=== PATIENT | female | born 1980 ===

== ENCOUNTER 2024-01-15 12:40 | Emergency (ER) | payer BC, SELFPAY ==
[2024-01-15 12:43] VITALS: BP 131/86
--- NOTE | 2024-01-15 13:27 | ED.GENMED ---
History of Present Illness
<Samina Mei PA-C - Last Filed: 01/16/24 15:54>
General
Chief Complaint: Cardiac Symptoms
Source: patient and spouse
Exam Limitations: none
Time Seen by Provider: 01/15/24 13:16
Nursing documentation reviewed up to this point in time: agreed with
History of Present Illness
History of Present Illness:
Patient is a 43-year-old female with history hyperlipidemia presenting with constant chest tightness for the past 9 days. Patient denies any exertional or pleuritic component to pain. States pain has been relatively constant, although somewhat
worse after eating. Pain is located in her left chest without any radiation to back, jaw. She describes it as a 'tightness 'patient denies any associated fevers, chills, cough, shortness of breath, nausea/vomiting, lightheadedness.
Patient denies any recent viral illnesses.
Patient denies any personal or family history of cardiovascular disease.
Past History
<Samina Mei PA-C - Last Filed: 01/16/24 15:54>
Past History
ED Past Medical History: None
ED Past Surgical History: None
Social History
Tobacco: Non-smoker
Alcohol: None
Review of Systems
<Samina Mei PA-C - Last Filed: 01/16/24 15:54>
Review of Systems
Allergies reviewed?: Yes
All Other Systems: ROS reviewed and negative except as documented in HPI and ROS
Phy Exam
<Samina Mei PA-C - Last Filed: 01/16/24 15:54>
Physical Exam
Physical Exam:
Vitals: Patient's vital signs are stable. Afebrile
General: Patient is very well appearing, no acute distress. Nontoxic-appearing
Skin: Warm and dry, no rashes or lesions
Head: Normocephalic, atraumatic
Eyes: Sclera nonicteric. EOMs intact. No nystagmus.
Throat: Protecting airway
Neck: Normal ROM, no cervical spine tenderness, no meningismus. No JVD
Cardiac: Regular rate and rhythm, no murmurs. Anterior chest will not tender to palpation.
Pulm: Normal respiratory effort, no wheezes, rales, rhonchi heard on exam.
Abdomen: Abdomen soft. No abdominal tenderness.
Extremities: No evidence of cyanosis or edema. Great distal pulses
Neuro: AAOx3. CN II-XII intact. No focal neurologic deficits.
Psychiatric: Normal affect.
Scores
<Samina Mei PA-C - Last Filed: 01/16/24 15:54>
Heart Score for Chest Pain Patients
STEMI patient?: No
History: Slightly or Non-Suspicious
ECG: Normal
Age: </= 45 years
Risk Factors: 1 or 2 Risk Factors
Troponin: </= Normal Limit
Heart Score for Chest Pain Patients: 1
Heart Score Risk: 2.5% MACE over next 6 weeks
Course
<Samina Mei PA-C - Last Filed: 01/16/24 15:54>
Orders/Labs/Results
Orders:
Orders
01/15/24 12:45
EKG [Electrocardiogram (*1)] Urgent
Reason for Study: Chest Pain
01/15/24 12:46
EKG- Treatment ONCE
01/15/24 13:30
CR Chest - 2 Views Urgent
Comment:
Reason For Exam: left chest tightness
01/15/24 13:37
Complete Blood Count/With Diff Urgent
Comprehensive Metabolic Panel Urgent
NT-proBNP Urgent
Comment: PRO-BNP ADDED ON BY FLOOR 3PM 01-15-24
Troponin I Urgent
01/15/24 15:06
Add On- LAB Urgent
Tests Added?: Pro-BNP
01/15/24 15:19
COVID-19 Antigen Urgent
Source: Nasal Swab
01/15/24 16:29
Ketorolac [Toradol] 15 mg IV NOW STA
Abnormal Lab Results
01/15/24
13:37
RBC 3.97 L 10^6/uL
(4.20-5.40)
Hct 35.7 L %
(37.0-47.0)
MCH 31.5 H pg
(27.0-31.0)
MPV 10.8 H fL
(7.4-10.4)
01/15/24 13:37
01/15/24 13:37
Vital Signs
Initial and Last Documented VS:
Initial Vital Signs
Temp Pulse Resp BP Pulse Ox
98.1 F 71 18 131/86 100
01/15/24 12:43 01/15/24 12:43 01/15/24 12:43 01/15/24 12:43 01/15/24 12:43
Last Documented Vital Signs
Temp Pulse Resp BP Pulse Ox
98.1 F 57 19 125/89 99
01/15/24 12:43 01/15/24 16:45 01/15/24 16:45 01/15/24 16:00 01/15/24 16:45
Makenzielt;Mack Moeller, DO - Last Filed: 01/15/24 14:13>
Orders/Labs/Results
Orders:
Orders
01/15/24 12:45
EKG [Electrocardiogram (*1)] Urgent
Reason for Study: Chest Pain
01/15/24 12:46
EKG- Treatment ONCE
01/15/24 13:30
CR Chest - 2 Views Urgent
Comment:
Reason For Exam: left chest tightness
01/15/24 13:37
Complete Blood Count/With Diff Urgent
Comprehensive Metabolic Panel Urgent
NT-proBNP Urgent
Comment: PRO-BNP ADDED ON BY FLOOR 3PM 01-15-24
Troponin I Urgent
01/15/24 15:06
Add On- LAB Urgent
Tests Added?: Pro-BNP
01/15/24 15:19
COVID-19 Antigen Urgent
Source: Nasal Swab
01/15/24 16:29
Ketorolac [Toradol] 15 mg IV NOW STA
Abnormal Lab Results
01/15/24
13:37
RBC 3.97 L 10^6/uL
(4.20-5.40)
Hct 35.7 L %
(37.0-47.0)
MCH 31.5 H pg
(27.0-31.0)
MPV 10.8 H fL
(7.4-10.4)
01/15/24 13:37
01/15/24 13:37
Vital Signs
Initial and Last Documented VS:
Initial Vital Signs
Temp Pulse Resp BP Pulse Ox
98.1 F 71 18 131/86 100
01/15/24 12:43 01/15/24 12:43 01/15/24 12:43 01/15/24 12:43 01/15/24 12:43
Last Documented Vital Signs
Temp Pulse Resp BP Pulse Ox
98.1 F 57 19 125/89 99
01/15/24 12:43 01/15/24 16:45 01/15/24 16:45 01/15/24 16:00 01/15/24 16:45
<Samina Mei PA-C - Last Filed: 01/16/24 15:54>
MDM/Problems Addressed
Differential Diagnosis Includes:
Not limited to: Muscular strain, pericarditis, myocarditis, pneumothorax, ACS, pleurisy
MDM/Problems Addressed:
43-year-old female presents with 9 days of constant left-sided chest tightness. No exertional or pleuritic component. No associated shortness of breath, nausea/vomiting, diaphoresis. No fever, chills, recent viral illnesses. Mildly hypertensive
on arrival, otherwise vital signs are stable. Oxygenating well on room air. Physical exam as above. Patient is extremely well-appearing, in no apparent distress. Heart regular rate and rhythm. Lungs clear bilaterally. Patient is perfusing well
no clinical evidence of DVT. Great distal pulses. No focal neurologic deficits. Abdomen soft and nontender. EKG without any acute ischemic changes. Labs initiated in triage show no clinically significant abnormalities. Troponin is normal.
Given labs and then a constant and ongoing for the past 9 days�this is sufficient to rule out acute TN. A chest x-ray was obtained which radiology read as mild interstitial pulmonary edema. Patient does not have any clinical evidence of fluid
overload on exam and lungs are clear bilaterally. Did add on a proBNP which was normal. Do not suspect heart failure. COVID test was also negative. Very low suspicion for ACS given history and workup in emergency department. Heart score of 1.
Patient hemodynamically stable, remains in no distress. No indication for admission at this time, stable for discharge and a. Will discharge with chest pain follow-up. Close return precautions discussed. Patient seen with attending physician.
Chronic conditions affecting care:
Hyperlipidemia
Acute Exacerbation and/or Progression of Chronic Illness:
N/A
<Samina Mei PA-C - Last Filed: 01/16/24 15:54>
*Radiology
Radiology exam reviewed: preliminary read by ED provider and radiology read reviewed
*Pulse Oximetry
Patient hypoxic: no
*EKG
Interpreted by ED Provider?: Yes
EKG Intrepretation Date: 01/15/24
Heart Rate: 61
Rate: normal
Rhythm: sinus
[place]: normal axis
Interval: normal interval
QRS Pattern: normal QRS
Ischemia: no ischemia
*Grease Machine Worker Interpretation
Rate: normal
Interpretation: normal
Heart Rate: 60
Rhythm: sinus
*Critical Care Note
Total Time (30-74mins, 75-104mins- exclusive of procedures): Not Applicable
ED Attending Note
<Samina Mei PA-C - Last Filed: 01/16/24 15:54>
-
Portions of this chart may have been created with voice recognition software.� Occasional wrong word or��sound alike� substitutions may have occurred due to the inherent limitations of voice recognition software.
<Mack Moeller DO - Last Filed: 01/15/24 14:13>
ED Attending Note
Patient seen and examined by attending physician: Yes
I performed the substantive portion of visit, reviewed & personally made and approve the management plan that is documented in note by myself or EMMANUEL.: Yes
ED Attending Note:
I agree with Michelle's note.
Pt with left sided upper chest pain for several days. No assoc sob/nausea/vomiting/diaphoresis. Discomfort is not exertional. No recent injury. Not worse with deep inspiration.
General: Awake, Alert, Oriented X3. No acute distress.
Vitals: unremarkable
Head: Atraumatic
Eyes: Pupils equal, EOMI
Throat: Airway intact, no exudates
Neck: Trachea midline
Lungs: Clear and equal b/l
Heart: Regular rate, no murmurs
Abd: Soft, Nontender, No pulsatile mass
Neuro: Nonfocal
Skin: Warm, dry, no rash
Extremities: pulses equal b/l, no edema
EKG: Normal sinus rhythm with no acute ischemic changes
Patient presents with chest pain. Check chest x-ray and a single troponin given the length of time the patient has had discomfort.
Discharge Plan
Departure
Patient Disposition: Home (Routine Discharge)
Date of Disposition: 01/15/24
Time of Disposition: 16:30
Patient with high blood pressure during this ER visit?: No
Condition: Good
Covid-19: Negative COVID-19
Discharge Problem:
Chest pain
Instructions: Chest Pain (DC), Chest Pain CBC Follow Up
Prescriptions:
No Action
hydrocortisone [Anusol-HC] 2.5 % cream with perineal applicator
1 applic [place] DAILY PRN (Reason: hemorrhoids) Qty: 30 0RF
lidocaine-collagen 2 % gel
1 applic topical BID Qty: 4 0RF
senna 8.6 mg capsule
8.6 mg PO DAILY PRN (Reason: constipation) Qty: 14 0RF
prednisone 50 mg Tablet
50 mg PO DAILY Qty: 5 0RF
prednisone 10 mg Tablet
See Rx Instructions .ROUTE .COMPLEX Qty: 30 0RF
Rx Instructions:
Take By Mouth:
40 mg daily x3 days, 30 mg daily x3 days,
20 mg daily x3 days, 10 mg daily x3 days.
famotidine 20 mg tablet
20 mg PO BID 5 Days Qty: 10 0RF
cetirizine [Zyrtec] 10 mg tablet
10 mg PO BID 5 Days Qty: 10 0RF
Referrals:
Trenton Qureshi MD [Active] - Next open appointment
Liv Quiroz DO [Family Provider] -
Activity Restrictions/Additional Instructions:
Return to the emergency department with any worsening in chest pain or chest pain associated with exertion, shortness of breath, nausea/vomiting, lightheadedness, severe back pain, severe abdominal pain.
-You can take Motrin and/or Tylenol at home as needed for discomfort.
-You should follow-up with your primary care in a few days to ensure that symptoms are improving. You should also follow-up with a informatics physician liaison for further evaluation.
Monitor your symptoms closely and return to the emergency department with any acute worsening/new symptoms.
Interventions
Interventions:
*Risk Screen - Suicide Last Done: 01/15/24 13:34
*General Assessment Last Done: 01/15/24 13:34
*Neglect/Abuse Screening Last Done: 01/15/24 13:34
ED- Fall Risk Assessment Last Done: 01/15/24 14:35
*ED COVID-19 Vaccine History Last Done: 01/15/24 13:34
*Nursing Disposition Last Done: 01/15/24 16:52
ED- Pulmonary Assessment Last Done: 01/15/24 13:34
ED- Cardiac Assessment Last Done: 01/15/24 13:34
Discharge Date and Time
Discharge Date/Time: 01/15/24 16:57
Print Language: KOREAN
[2024-01-15 13:34] VITALS: BMI 25.8
[2024-01-15 13:42] VITALS: BP 119/83
[2024-01-15 13:54] LABS: % Basophils 0.6 % (0-2); % Eosinophils 0.6 % (0-6); % Immature Granulocytes 0.1 % (0-0.5); % Lymphocytes 46.2 % (20.5-51.1); % Monocytes 6.3 % (1.7-9.3); % Neutrophils 46.2 % (42.2-75.2); Absolute Lymphocytes 3.2 10^3/uL (1.2-3.4); Absolute Monocytes 0.4 10^3/uL (0.1-0.6); Absolute Neutrophils 3.2 10^3/uL (1.4-6.5); Hematocrit 35.7 % (37.0-47.0); Hemoglobin 12.5 g/dL (12.0-16.0); Mean Corpuscular Hgb 31.5 pg (27.0-31.0); Mean Corpuscular Volume 89.9 fL (81.0-99.0); Mean Platelet Volume 10.8 fL (7.4-10.4); Nucleated Red Blood Cells % 0 %; Platelet Count 219 10^3/uL (130-400); Red Blood Cell Count 3.97 10^6/uL (4.20-5.40); Red Cell Dist. Width 12.7 % (11.5-14.5); White Blood Cell Count 6.8 10^3/uL (4.8-10.8)
[2024-01-15 14:00] VITALS: BP 124/79
[2024-01-15 14:09] LABS: ALT (SGPT) 14 U/L (0-35); AST (SGOT) 23 U/L (14-36); Albumin 4.5 g/dl (3.5-5.0); Alkaline Phosphatase 54 U/L (38-126); Blood Urea Nitrogen 11 mg/dl (7-17); Calcium 9.8 mg/dl (8.4-10.2); Carbon Dioxide 27 mmol/L (22-30); Chloride 106 mmol/L (98-107); Estimated Creatinine Clearance 83 ml/min; Glucose 88 mg/dl (70-99); Potassium 3.9 mmol/L (3.5-5.1); Sodium 138 mmol/L (135-145); Total Bilirubin 0.5 mg/dl (0.2-1.3); Total Protein 6.9 g/dl (6.3-8.2); eGFR > 60.00
[2024-01-15 14:21] LABS: Troponin I < 0.012 ng/ml
[2024-01-15 15:00] VITALS: BP 121/80
[2024-01-15 15:45] LABS: COVID-19 Antigen Negative (Negative)
[2024-01-15 15:51] LABS: NT-proBNP 69.3 pg/ml
[2024-01-15 16:00] VITALS: BP 125/89
[2024-01-15] MEDS: TORADOL 15 MG IV (16:48)
== END 2024-01-15 16:57 | disposition home or self-care (01) ==
LOC: EMR 12:40
PROVIDERS: Physician Assistant; EMERGENCY PHYSICIAN Emergency Medicine; FAMILY PHYSICIAN Family Medicine
DX: R07.89 Other chest pain (principal); E78.00 Pure hypercholesterolemia, unspecified
CPT/HCPCS: 99283; 96374; 71046; 80053; 83880; 84484; 85025; 87811; 93005

== ENCOUNTER → 2024-01-17 09:31 | Outpatient (REF) | payer BC, SELFPAY | LOC: RCS 09:31 | PROVIDERS: ATTENDING PHYSICIAN Internal Medicine Cardiovascular Disease; FAMILY PHYSICIAN Family Medicine | DX: R07.9 Chest pain, unspecified (principal) | CPT/HCPCS: 93017; 93350 ==

== ENCOUNTER → 2024-01-21 15:30 | Outpatient (REF) | payer BC, SELFPAY | LOC: RCS 15:30 | PROVIDERS: ATTENDING PHYSICIAN Internal Medicine Cardiovascular Disease; FAMILY PHYSICIAN Family Medicine | DX: R07.9 Chest pain, unspecified (principal) | CPT/HCPCS: 93306 ==

== ENCOUNTER 2024-08-18 13:50 | Emergency (ER) | payer BC, SELFPAY ==
[2024-08-18 13:52] VITALS: BP 129/84
[2024-08-18 14:10] LABS: % Basophils 0.7 % (0-2); % Eosinophils 0.7 % (0-6); % Immature Granulocytes 0.3 % (0-0.5); % Lymphocytes 47.3 % (20.5-51.1); % Monocytes 7.2 % (1.7-9.3); % Neutrophils 43.8 % (42.2-75.2); Absolute Basophils 0.1 10^3/uL (0-0.2); Absolute Eosinophils 0.1 10^3/uL (0-0.7); Absolute Lymphocytes 3.6 10^3/uL (1.2-3.4); Absolute Monocytes 0.5 10^3/uL (0.1-0.6); Absolute Neutrophils 3.3 10^3/uL (1.4-6.5); Hematocrit 38.2 % (37.0-47.0); Hemoglobin 12.8 g/dL (12.0-16.0); Mean Corp Hgb Conc. 33.5 g/dL (33.0-37.0); Mean Corpuscular Hgb 31.8 pg (27.0-31.0); Mean Corpuscular Volume 94.8 fL (81.0-99.0); Nucleated Red Blood Cells % 0 %; Platelet Count 223 10^3/uL (130-400); Red Blood Cell Count 4.03 10^6/uL (4.20-5.40); Red Cell Dist. Width 12.9 % (11.5-14.5); White Blood Cell Count 7.5 10^3/uL (4.8-10.8)
[2024-08-18 14:23] LABS: HCG, Serum Qualitative Screen Negative
[2024-08-18 14:29] LABS: ALT (SGPT) 14 U/L (0-35); AST (SGOT) 22 U/L (14-36); Albumin 4.4 g/dl (3.5-5.0); Alkaline Phosphatase 55 U/L (38-126); Blood Urea Nitrogen 12 mg/dl (7-17); Calcium 9.5 mg/dl (8.4-10.2); Carbon Dioxide 26 mmol/L (22-30); Chloride 104 mmol/L (98-107); Glucose 93 mg/dl (70-99); Lipase 96 U/L (23-300); Potassium 4.6 mmol/L (3.5-5.1); Sodium 137 mmol/L (135-145); Total Bilirubin 0.5 mg/dl (0.2-1.3); Total Protein 7.3 g/dl (6.3-8.2); eGFR > 60.00
--- NOTE | 2024-08-18 16:25 | EDRN ---
Dr. Hernández in to see pt.
--- NOTE | 2024-08-18 16:41 | ED.GENMED ---
History of Present Illness
General
Chief Complaint: Abdominal Pain
Source: patient and family
Exam Limitations: none
Time Seen by Provider: 08/18/24 16:12
History of Present Illness
History of Present Illness:
43-year-old female with months of left upper quadrant pain. Initially intermittent. Now over the last week or so constant. Worse with eating. Has some acid reflux symptoms also. No chest pain no shortness of breath no pleuritic pain no back
pain no urinary symptoms. No change in bowels. No bloody or mucousy stools. No diarrhea.
Past History
Past History
ED Past Medical History: Hypercholesterolemia and Other (Ovarian thrombus)
ED Past Surgical History:
Social History
Tobacco: Non-smoker
Alcohol: None
Review of Systems
Review of Systems
All Other Systems: Not applicable
Constitutional: Denies fever or chills
Respiratory: Denies cough or trouble breathing
Cardiac: Denies palpitations or syncope
ABD/GI: Denies diarrhea, bloody stools or black stools
: Reports no symptoms
Phy Exam
Physical Exam
Physical Exam:
GENERAL: Alert and oriented in no apparent distress
EYE: Orbits normal.
NECK: Supple
CARDIAC: Regular rate and rhythm without any obvious murmurs.
LUNGS: Clear breath sounds,normal
ABDOMEN: Soft, without focal tenderness or distention. No spleen palpable. No right upper quadrant tenderness. No true left upper quadrant tenderness. Actually points to the lower anterior rib as the location.
NEUROLOGICAL: Alert and oriented , grossly non-focal
SKIN: Warm and dry, no rash or lesion, no discoloration, skin intact.
MUSCULOSKELETAL: No edema,no deformity.Good color
PSYCH: Normal and appropriate interaction.
Course
Orders/Labs/Results
Orders:
Orders
08/18/24 13:56
Electrocardiogram (*1) Urgent
Reason for Study: Abdominal Pain
EKG- Treatment ONCE
Test Result ONCE
08/18/24 14:01
Complete Blood Count/With Diff Urgent
Comprehensive Metabolic Panel Urgent
HCG, Serum Qualitative Screen Urgent
Lipase Urgent
08/18/24 16:34
Electrocardiogram (*1) Stat
Reason for Study: Other
Other Reason for Exam: chest pain
EKG- Treatment ONCE
08/18/24 16:53
D-Dimer Urgent
08/18/24 18:05
CT Abd/Pel (IV only)-DH only Urgent
Comment:
Reason For Exam: Left upper quadrant/left lower chest pain
CR Chest - 2 Views Urgent
Comment:
Reason For Exam: Left lower anterior chest pain/history of clots
Abnormal Lab Results
08/18/24
14:01
RBC 4.03 L 10^6/uL
(4.20-5.40)
MCH 31.8 H pg
(27.0-31.0)
MPV 11.0 H fL
(7.4-10.4)
Absolute Lymphs (auto) 3.6 H 10^3/uL
(1.2-3.4)
08/18/24 14:01
08/18/24 14:01
Vital Signs
Initial and Last Documented VS:
Initial Vital Signs
Temp Pulse Resp BP Pulse Ox
97.9 F 70 18 129/84 100
08/18/24 13:52 08/18/24 13:52 08/18/24 13:52 08/18/24 13:52 08/18/24 13:52
Last Documented Vital Signs
Temp Pulse Resp BP Pulse Ox
97.9 F 75 20 111/72 99
08/18/24 13:52 08/18/24 18:25 08/18/24 18:25 08/18/24 18:00 08/18/24 18:00
MDM/Problems Addressed
Differential Diagnosis Includes:
Patient's location is left anterior very lower chest area either chest wall or below the diaphragm in this location. Spleen is not palpable. She is not describing bowel symptoms. Not consistent with a right upper quadrant issue. Patient does
have a history of clotting issue with a ovarian clot. Highly doubt pulmonary emboli however we will get a D-dimer for completeness. If this is negative CT scan abdomen pelvis. Best description would be possible gastritis or early ulcer. If all
negative will treat with PPI and GI follow-up.
*Radiology
Radiology exam reviewed: radiology read reviewed (Small bowel inflammatory changes in the jejunum)
*Pulse Oximetry
Patient hypoxic: no
*EKG
Interpreted by ED Provider?: Yes
Interpretation: normal
Comparison EKG: no changes
Heart Rate: 62
Rate: normal
Rhythm: sinus
[place]: normal axis
Interval: normal interval
QRS Pattern: normal QRS
Ischemia: no ischemia
*Critical Care Note
Total Time (30-74mins, 75-104mins- exclusive of procedures): Not Applicable
Data Reviewed
Review of Other/Old Records Reveals: Labs, Records, Radiology Studies and Testing
Update Note
Update Note:
Patient stable and nontoxic. Some jejunal inflammation. Possible enteritis. Possible celiac. Interesting, the patient mention issues with gluten when she is cooking. Stable for discharge. Will cover for possible gastritis or ulcer
ED Attending Note
-
Portions of this chart may have been created with voice recognition software.� Occasional wrong word or��sound alike� substitutions may have occurred due to the inherent limitations of voice recognition software.
Discharge Plan
Departure
Patient Disposition: Home (Routine Discharge)
Date of Disposition: 08/18/24
Time of Disposition: 20:02
Patient with high blood pressure during this ER visit?: Yes
Discharge Problem:
Progressive abdominal pain, Jejunal inflammation
Instructions: Abdominal Pain, BLOOD PRESSURE
Prescriptions:
New
pantoprazole [Protonix] 40 mg tablet,delayed release (DR/EC)
40 mg PO DAILY 28 Days Qty: 28 0RF
No Action
hydrocortisone [Anusol-HC] 2.5 % cream with perineal applicator
1 applic [place] DAILY PRN (Reason: hemorrhoids) Qty: 30 0RF
lidocaine-collagen 2 % gel
1 applic topical BID Qty: 4 0RF
senna 8.6 mg capsule
8.6 mg PO DAILY PRN (Reason: constipation) Qty: 14 0RF
prednisone 50 mg Tablet
50 mg PO DAILY Qty: 5 0RF
prednisone 10 mg Tablet
See Rx Instructions .ROUTE .COMPLEX Qty: 30 0RF
Rx Instructions:
Take By Mouth:
40 mg daily x3 days, 30 mg daily x3 days,
20 mg daily x3 days, 10 mg daily x3 days.
famotidine 20 mg tablet
20 mg PO BID 5 Days Qty: 10 0RF
cetirizine [Zyrtec] 10 mg tablet
10 mg PO BID 5 Days Qty: 10 0RF
Referrals:
Dalton Overton MD [Active] - Follow up in 5-7 days
Jackson Baez DO [Family Provider] -
Activity Restrictions/Additional Instructions:
The prescription was sent to your pharmacy
Follow-up with gastroenterology call tomorrow for an appointment
This could be a gluten issue. You could start by trying a no gluten diet until you get into gastroenterology
Interventions
Interventions:
*Risk Screen - Suicide Last Done: 08/18/24 13:52
*General Assessment Last Done: 08/18/24 16:45
*Neglect/Abuse Screening Last Done: 08/18/24 13:52
*ED- Fall Risk Assessment Last Done: 08/18/24 16:45
*ED COVID-19 Vaccine History Last Done: 08/18/24 16:45
RK-Kcpdyi-Ghcrdveswi Assessment Last Done: 08/18/24 17:01
Discharge Date and Time
Print Language: GREEK
--- NOTE | 2024-08-18 16:43 | EDRN ---
Pt arrives for L upper abd pain that she has had for 4 months intermittently. Pain is now more constant so pt came to ED to be seen.
[2024-08-18 16:45] VITALS: BMI 24.5
[2024-08-18 16:58] VITALS: BP 131/84
[2024-08-18 17:00] VITALS: BP 114/91
[2024-08-18 17:23] LABS: D-Dimer 0.46 ug/mlFEU (0.00-0.50)
[2024-08-18 18:00] VITALS: BP 111/72
[2024-08-18] MEDS: PROTONIX 40 MG PO (20:12)
== END 2024-08-18 20:34 | disposition home or self-care (01) ==
LOC: EMR 13:50
PROVIDERS: Emergency Medicine; EMERGENCY PHYSICIAN Emergency Medicine; FAMILY PHYSICIAN Family Medicine
DX: K52.9 Noninfective gastroenteritis and colitis, unspecified (principal); R10.12 Left upper quadrant pain; R03.0 Elevated blood-pressure reading, without diagnosis of hypertension
CPT/HCPCS: 99285; 71046; 74177; 80053; 83690; 84703; 85025; 85379; 93005; Q9967

== ENCOUNTER 2024-09-01 06:24 | Day surgery (SDC) | payer BC, SELFPAY | END 2024-09-01 17:06 | disposition home or self-care (01) | LOC: GI 06:24 | PROVIDERS: ATTENDING PHYSICIAN Internal Medicine Gastroenterology | DX: R10.12 Left upper quadrant pain (principal); K29.50 Unspecified chronic gastritis without bleeding | CPT/HCPCS: 43239; 88305; 88342 ==

== ENCOUNTER 2025-03-13 13:57 | Emergency (ER) | payer BC, SELFPAY ==
[2025-03-13 14:13] VITALS: BP 129/84
[2025-03-13 14:53] LABS: Hematocrit 38.0 % (37.0-47.0); Hemoglobin 12.1 g/dL (12.0-16.0); Mean Corp Hgb Conc. 31.8 g/dL (33.0-37.0); Mean Corpuscular Volume 94.1 fL (81.0-99.0); Nucleated Red Blood Cells % 0 %; Platelet Count 237 10^3/uL (130-400); Red Cell Dist. Width 13.5 % (11.5-14.5)
[2025-03-13 15:05] LABS: ALT (SGPT) 13 U/L (0-35); AST (SGOT) 21 U/L (14-36); Albumin 4.6 g/dl (3.5-5.0); Alkaline Phosphatase 59 U/L (38-126); Blood Urea Nitrogen 10 mg/dl (7-17); Calcium 8.9 mg/dl (8.4-10.2); Carbon Dioxide 25 mmol/L (22-30); Chloride 106 mmol/L (98-107); Glucose 91 mg/dl (70-99); Lipase 92 U/L (23-300); Potassium 4.4 mmol/L (3.5-5.1); Sodium 137 mmol/L (135-145); Total Protein 7.6 g/dl (6.3-8.2); eGFR > 60.00
[2025-03-13 15:17] LABS: Troponin I < 0.012 ng/ml
[2025-03-13 16:00] VITALS: BMI 29.7
--- NOTE | 2025-03-13 16:40 | ED.GENMED ---
History of Present Illness
General
Chief Complaint: Abdominal Pain
Source: patient
Exam Limitations: none
Time Seen by Provider: 03/13/25 16:24
Nursing documentation reviewed up to this point in time: agreed with
History of Present Illness
History of Present Illness:
The patient is a 44-year-old female with a past medical history of gastritis and H. pylori who reports 2 weeks of intermittent left upper abdominal pain that seems to radiate into her upper back after eating. Patient denies shortness of breath.
She denies specific chest pain. She reports symptoms are worse after eating. She denies nausea and vomiting. Patient reports she is currently on no medication for her esophagus or stomach.
Past History
Past History
ED Past Medical History: Hypercholesterolemia and Other (Ovarian thrombus)
ED Past Surgical History:
Social History
Tobacco: Non-smoker
Alcohol: None
Drug: None
Personal: Other
Living: with family
Employment: Other
Family History
Family History: Other
Review of Systems
Review of Systems
Allergies reviewed?: Yes
All Other Systems: ROS reviewed and negative except as documented in HPI and ROS
Constitutional: Reports no symptoms
EENT: Reports no symptoms
Respiratory: Reports no symptoms
Cardiac: Reports no symptoms
ABD/GI: Reports abdominal pain
: Reports no symptoms
Musculoskeletal: Reports no symptoms
Skin: Reports no symptoms
Neurological: Reports no symptoms
Endocrine: Reports no symptoms
Hematologic/Lymphatic: Reports no symptoms
Psychiatric: Reports no symptoms
Phy Exam
Physical Exam
Physical Exam:
Physical Exam
General: no apparent distress, not acutely ill. Very well and comfortable appearing
Neck: supple. no meningeal signs. normal psoterior pharynx
Heart: s1/s2 regular rate and rhythm, no murmur. equal radial pulses.
Lungs: no acute respiratory distress. clear bilaterally
Abdomen: normal bowel sounds. Left upper quadrant and epigastric tenderness. No right upper quadrant tenderness. Soft throughout. Nondistended. No pulsatile mass
Neuro: alert and oriented. no focal neurological deficits
Skin: no rash
Psychiatric: well kept. interactive and cooperative
Extremities: no edema. no calf tenderness. negative homans. good distal pulses
Course
Orders/Labs/Results
Orders:
Orders
03/13/25 14:15
Electrocardiogram (*1) Urgent
Reason for Study: Abdominal Pain
EKG- Treatment ONCE
03/13/25 14:28
Complete Blood Count/With Diff Urgent
Comprehensive Metabolic Panel Urgent
Lipase Urgent
Troponin I Urgent
03/13/25 16:53
Mag Hydrox/Al Hydrox/Simeth [Maalox] 30 ml Phenobarb/Hyoscy/Atropine/Scop [] 10 ml Viscous Lidocaine 2% [Xylocaine Viscous Cup] 10 ml PO NOW
03/13/25 17:07
Mag Hydrox/Al Hydrox/Simeth [Maalox] 30 ml .ROUTE .STK-MED ONE
Phenobarb/Hyoscy/Atropine/Scop [] 10 ml .ROUTE .STK-MED ONE
Viscous Lidocaine 2% [Xylocaine Viscous Cup] 15 ml .ROUTE .STK-MED ONE
Abnormal Lab Results
03/13/25
14:28
RBC 4.04 L 10^6/uL
(4.20-5.40)
MCHC 31.8 L g/dL
(33.0-37.0)
MPV 10.5 H fL
(7.4-10.4)
03/13/25 14:28
03/13/25 14:28
Vital Signs
Initial and Last Documented VS:
Initial Vital Signs
Temp Pulse Resp BP Pulse Ox
98.2 F 84 18 129/84 99
03/13/25 14:13 03/13/25 14:13 03/13/25 14:13 03/13/25 14:13 03/13/25 14:13
Last Documented Vital Signs
Temp Pulse Resp BP Pulse Ox
98.2 F 84 18 129/84 99
03/13/25 14:13 03/13/25 14:13 03/13/25 14:13 03/13/25 14:13 03/13/25 16:40
MDM/Problems Addressed
Differential Diagnosis Includes:
Acute on chronic gastritis, duodenal ulcer, aortic dissection, ACS
MDM/Problems Addressed:
Patient presents with acute upper abdominal pain that at times radiates into her back
Chronic conditions affecting care:
Gastritis
Acute Exacerbation and/or Progression of Chronic Illness:
Patient likely has acute on chronic gastritis
*Pulse Oximetry
SaO2: 99
Oxygen Mode of Delivery: Room air
Patient hypoxic: no
*EKG
Interpreted by ED Provider?: Yes
Interpretation: normal
Comparison EKG: no changes
Rate: normal
Rhythm: sinus
[place]: normal axis
Interval: normal interval
QRS Pattern: normal QRS
Ischemia: no ischemia
*Account Auditor Interpretation
Rate: normal
Interpretation: normal
Rhythm: sinus
*Critical Care Note
Total Time (30-74mins, 75-104mins- exclusive of procedures): Not Applicable
Data Reviewed
Review of Other/Old Records Reveals: Progress Notes (GI progress note reviewed from Dr. Campa (GI) when patient was evaluated for left upper abdominal pain and bloating)
Source: patient
Patient Management
Discussion with other providers: Other (Dr. Campa who is on-call for GI recommended PPI.)
Escalation/DeEscalation of care consider admission/obs:
Patient appears extremely well. Given she looks so well and comfortable it is doubtful she is an aortic dissection. Patient will be treated for likely acute gastritis
Update Note
Update Note:
Patient remains extremely well and comfortable appearing. Her belly is completely soft with normal bowel sounds. Therefore, and is unlikely to be a bowel obstruction. She has no right upper quadrant tenderness and her liver function test are
normal therefore it is unlikely to be gallbladder related.
ED Attending Note
-
Portions of this chart may have been created with voice recognition software.� Occasional wrong word or��sound alike� substitutions may have occurred due to the inherent limitations of voice recognition software.
Discharge Plan
Departure
Patient Disposition: Home (Routine Discharge)
Date of Disposition: 03/13/25
Time of Disposition: 17:40
Patient with high blood pressure during this ER visit?: Yes
Condition: Good
Covid-19: Not Applicable
Discharge Problem:
Acute epigastric pain
Instructions: Acid Reflux and GERD in Adults (DC), [place] diet
Prescriptions:
New
pantoprazole [Protonix] 40 mg tablet,delayed release (DR/EC)
40 mg PO DAILY Qty: 14 0RF
Rx Instructions:
Take before breakfast
No Action
hydrocortisone [Anusol-HC] 2.5 % cream with perineal applicator
1 applic OK DAILY PRN (Reason: hemorrhoids) Qty: 30 0RF
lidocaine-collagen 2 % gel
1 applic topical BID Qty: 4 0RF
senna 8.6 mg capsule
8.6 mg PO DAILY PRN (Reason: constipation) Qty: 14 0RF
prednisone 50 mg Tablet
50 mg PO DAILY Qty: 5 0RF
prednisone 10 mg Tablet
See Rx Instructions .ROUTE .COMPLEX Qty: 30 0RF
Rx Instructions:
Take By Mouth:
40 mg daily x3 days, 30 mg daily x3 days,
20 mg daily x3 days, 10 mg daily x3 days.
famotidine 20 mg tablet
20 mg PO BID 5 Days Qty: 10 0RF
cetirizine [Zyrtec] 10 mg tablet
10 mg PO BID 5 Days Qty: 10 0RF
pantoprazole [Protonix] 40 mg tablet,delayed release (DR/EC)
40 mg PO DAILY 28 Days Qty: 28 0RF
Referrals:
Jackson Baez DO [Family Provider, Family Practice]
Rohith Gruber MD [Active, Radiology]
Tariq Campa MD [Active, Gastroenterology]
Referral Note: Call for next open appointment
Interventions
Interventions:
*Risk Screen - Suicide Last Done: 03/13/25 14:15
*Neglect/Abuse Screening Last Done: 03/13/25 14:15
Discharge Date and Time
Print Language: FAROESE
[2025-03-13 18:10] VITALS: BP 123/79
== END 2025-03-13 17:50 | disposition home or self-care (01) ==
LOC: EMR 13:57
PROVIDERS: Student in an Organized Health Care Education/Training Program; EMERGENCY PHYSICIAN Emergency Medicine; FAMILY PHYSICIAN Family Medicine
DX: R10.13 Epigastric pain (principal); E78.00 Pure hypercholesterolemia, unspecified; Z87.19 Personal history of other diseases of the digestive system; Z98.891 History of uterine scar from previous surgery
CPT/HCPCS: 99283; 80053; 83690; 84484; 85025; 93005